=== PATIENT | female | born 1955 | race Caucasian/White ===

== ENCOUNTER 2024-04-11 06:14 | Day surgery (SDC) | payer MEDICARE, BC ==
[~2024-04-11] VITALS: Ht 180.3 cm; Wt 96.2 kg
[2024-04-11] VITALS (13 sets, daily range): BP systolic 133–176; BP diastolic 56–84; PULSE 61–71; RESP 12–20; TEMP 98.4; O2SAT 95–100
[~2024-04-11 06:14] MED LIST: ASCO100031 PO; ASPI-1009 PO; ATOR40TA72 PO; BIOCLEANSE; CELE-127 PO; ERGO400C PO; GABA-530 PO; LACT1CAP65 PO; MECO10005 PO; MULT-269 PO; NITR0.4T51 SL; NORE5TAB PO; OMEP20CA16 PO; OXYB5TAB21 PO; TUMERIC; VALA100031 PO; ZINC220T3 PO
[2024-04-11] MEDS: famotidine 20mg tablet PO ONE (06:53)
[2024-04-11] MEDS: cefazolin 2gm/D5W 100mL 100 ML IV ONE (06:54)
[2024-04-11] MEDS: ringers solution, lacted 1,000 ML IV SCH (06:54)
[2024-04-11] MEDS ORDERED: methylPREDNISolone acetate 80mg/ml inj**IM only ONE (07:21)
[2024-04-11] MEDS ORDERED: oxymetazoline 15 ML nasal spray NS ONE (07:23)
[2024-04-11] MEDS: oxymetazoline 15 ML nasal spray NS ONE (07:36)
[2024-04-11] MEDS ORDERED: fentaNYL/PF 50MCG/1 ML 2ML syringe ONE (08:02)
[2024-04-11] MEDS ORDERED: sevoflurane 250ml liquid IH ONE (08:19)
[2024-04-11] MEDS ORDERED: gelatin sponge, absorbable (Gelfoam 100) sponge TP ONE (08:21)
[2024-04-11] MEDS ORDERED: ofloxacin 0.33% 5ml ophthalmic drops EACHEYE ONE (08:25)
[2024-04-11] MEDS: epiNEPHrine 1 mg/ml inj ONE (08:54)
[2024-04-11] MEDS: gelatin sponge, absorbable (Gelfoam 100) sponge TP ONE (08:54)
[2024-04-11] MEDS: LIDOcaine 1% W/epiNEPHrine 1:100,000 20ml vial ONE ×2 (08:54)
[2024-04-11] MEDS: cocaine 4% topical solution 4ml bottle ONE (08:54)
[2024-04-11] MEDS: mupirocin 2% ointment 22GM ONE (09:00)
[2024-04-11] MEDS: ofloxacin 0.3% 5ml otic drops EACH EAR ONE (09:01)
[2024-04-11] MEDS ORDERED: sugammadex 200mg/2ml injection IV ONE (09:41)
[2024-04-11] MEDS ORDERED: labetalol 20mg/4ml (5mg/ml) syringe IV PRN (10:00)
[2024-04-11] MEDS ORDERED: meperidine/PF 25mg/ml syringe IV PRN (10:00)
[2024-04-11] MEDS ORDERED: proCHLORperazine 10 MG/2 ml inj IV PRN (10:00)
[2024-04-11] MEDS ORDERED: ringers solution, lacted 1,000 ML IV SCH (10:00)
[2024-04-11] MEDS ORDERED: HYDROmorphone/PF 0.2 MG/ML SYRINGE IV PRN ×2 (10:00)
[2024-04-11] MEDS ORDERED: ondansetron/PF 4mg/2ml inj IV PRN (10:00)
[2024-04-11] MEDS: hydrALAZINE 20mg/ml inj. IV PRN (10:20)
[2024-04-11] MEDS: fentaNYL/PF 50MCG/1 ML 2ML syringe IV PRN ×2 (10:21→10:38)
[2024-04-11] MEDS: salt irrigation nasal spray 45 ML SPRAY NS PRN (11:41)
[2024-04-11] MEDS: mupirocin 2% nasal ointment 1gm UD NS SCH (11:43)
[2024-04-11] MEDS ORDERED: oxymetazoline 15 ML nasal spray NS SCH (20:00)
== END 2024-04-11 12:30 | disposition home or self-care (01) ==
LOC: PAS 06:14
PROVIDERS: ATTEND Otolaryngology
DX: J34.2 Deviated nasal septum (principal); J34.3 Hypertrophy of nasal turbinates; H65.93 Unspecified nonsuppurative otitis media, bilateral; H74.03 Tympanosclerosis, bilateral; E78.5 Hyperlipidemia, unspecified; G47.33 Obstructive sleep apnea (adult) (pediatric); K21.9 Gastro-esophageal reflux disease without esophagitis; G62.9 Polyneuropathy, unspecified; Z85.41 Personal history of malignant neoplasm of cervix uteri; Z87.891 Personal history of nicotine dependence; Z79.82 Long term (current) use of aspirin; Z79.899 Other long term (current) drug therapy
CPT/HCPCS: 30140; 30520; 69436; 82948; A4618; A6402; A7000; J0171; J0360; J0690; J1100; J2001; J2405; J2704; J3010; J3490; J7030; J7120; Z7506; Z7508; Z7512; Z7610; A6449; J1010